=== PATIENT | female | born 1960 | race Asian ===

== ENCOUNTER 2023-02-24 09:01 | Day surgery (SDC) | payer OTHER ==
[~2023-02-24] VITALS: Ht 154.9 cm; Wt 61.2 kg
[2023-02-24] MEDS ORDERED: LIDOCAINE 2% 100 MG/5 ML UJET TP ONE (10:31)
[2023-02-24] MEDS ORDERED: MIDAZOLAM 5 MG/5 ML VIAL ONE (10:31)
[2023-02-24] MEDS ORDERED: fentaNYL citrate 0.05 MG/ML VIAL ONE (10:31)
[2023-02-24] MEDS ORDERED: SIMETHICONE 40 MG/0.6 ML ONE (11:06)
== END 2023-02-24 11:36 | disposition home or self-care (01) ==
LOC: MOR 09:01 → MMU 09:05 → MOR 11:36
PROVIDERS: ATTEND Internal Medicine Gastroenterology
DX: Z12.11 Encounter for screening for malignant neoplasm of colon (principal)
CPT/HCPCS: 45378; J3010; J2250